=== PATIENT | male | born 2000 | race Two or more races ===

== ENCOUNTER 2023-09-10 18:06 | Inpatient (IN) | payer OTHER ==
[~2023-09-10] VITALS: Ht 200.7 cm; Wt 120.0 kg
[2023-09-10] MEDS ORDERED: KETOROLAC TROMETH 60MG/2ML VIAL IM ONE (18:30)
[2023-09-10 18:33] LABS: Urine Bacteria None Seen /hpf (None Seen)
[2023-09-10 18:36] VITALS: PULSE 86; RESP 16; O2SAT 100
[2023-09-10 18:41] LABS: Urine Blood 2+ /uL (Negative); Urine Clarity Turbid (Clear); Urine Color Yellow (Yellow); Urine Mucus FEW (None Seen); Urine Protein, UAD TRACE (Negative); Urine Specific Gravity 1.034 (1.001-1.035); Urine Urobilinogen 2 mg/dL (Negative); Urine WBC 4 /hpf (0 - 3); Urine pH 5.5 (5.0-9.0)
[2023-09-10] MEDS: SODIUM CHLORIDE 0.9% 1,000 ML IV ONE ×2 (18:59→20:30)
[2023-09-10] MEDS: ONDANSETRON HCL 4 MG/2 ML VIAL IV ONE (18:59)
[2023-09-10] MEDS: KETOROLAC TROMETH 30 MG/ML 1ML VIAL IV ONE (18:59)
[2023-09-10] MEDS ORDERED: ONDANSETRON HCL 4 MG/2 ML VIAL IV PRN (20:30)
[2023-09-10] MEDS ORDERED: ACETAMINOPHEN 325 MG TAB PO PRN (20:30)
[2023-09-10] MEDS: HYDROmorphone HCL 2 MG/ML VL/or syr IV ONE (20:43)
[2023-09-10 21:09] LABS: Basophils # (auto) 0 10 ^3/uL (0-0.2); Basophils % (auto) 0.1 % (0.0-2.0); Eosinophils # (auto) 0 10 ^3/uL (0-0.8); Eosinophils % (auto) 0.1 % (0.0-7.0); Hematocrit 42.3 % (41.0-53.0); Hemoglobin 14.5 g/dL (13.5-17.5); Lymphocytes # (auto) 0.8 10 ^3/uL (0.4-5.4); Lymphocytes % (auto) 7.5 % (10.0-50.0); Mean Corpuscular Hemoglobin 29.4 pg (28.0-32.0); Mean Corpuscular Hgb Conc. 34.3 g/dL (32.0-36.0); Mean Corpuscular Volume 85.7 fL (80.0-100.0); Monocytes # (auto) 0.3 10 ^3/uL (0-1.3); Monocytes % (auto) 3.2 % (0.0-12.0); Neutrophils # (auto) 9.3 10 ^3/uL (1.6-8.6); Neutrophils % (auto) 89.1 % (37.0-80.0); Red Blood Cells 4.93 10^6/uL (4.5-5.90); Red Cell Distribution Width 13.3 % (11.8-14.3); White Blood Cell 10.4 10^3/uL (4.4-10.8)
[2023-09-10 21:25] LABS: Alanine Aminotransferase 22 U/L (7-40); Albumin 4.7 g/dL (3.2-4.8); Alkaline Phosphatase 68 U/L (46-116); Anion Gap 9 (5-15); Aspartate Aminotransferase 25 U/L (13-40); BUN/Creatinine Ratio 12.8 (10.0-20.0); Blood Urea Nitrogen 14 mg/dL (9-23); Calcium 9.9 mg/dL (8.7-10.4); Carbon Dioxide 22 mmol/L (20-30); Chloride 107 mmol/L (98-107); Glucose 86 mg/dL (74-106); Potassium 3.6 mmol/L (3.5-5.1); Sodium 138 mmol/L (136-145)
[2023-09-10 21:26] LABS: Bilirubin, Total 1.2 mg/dL (0.2-1.0); Total Protein 6.8 g/dL (5.7-8.2)
[2023-09-10 21:31] LABS: INR 1.15 (0.9-1.15); Prothrombin Time 12.1 sec (9.3-11.8)
[2023-09-10] MEDS: SODIUM CHLOR 0.9% PF (SALINE LOCK) 10ML VIAL/SYR IV SCH (22:23)
[2023-09-11] MEDS: MORPHINE SULFATE INJ 2 MG/ml SYRG IV PRN (00:05)
[2023-09-11 00:15] VITALS: PULSE 86; RESP 18; O2SAT 94
[2023-09-11] MEDS: LACTATED RINGER'S 1,000 ML IV ONE (00:41)
[2023-09-11 01:00] VITALS: BP 128/88; PULSE 86; RESP 20; TEMP 97.6; O2SAT 94
[2023-09-11 01:04] VITALS: BP 128/88; PULSE 86; RESP 18; TEMP 97.6; O2SAT 94
[2023-09-11] MEDS: HYDROcodone-ACET 5/325MG TAB PO PRN (01:35)
[2023-09-11 05:00] VITALS: BP 129/74; PULSE 76; RESP 22; TEMP 97.5; O2SAT 97
[2023-09-11 08:00] VITALS: BP 141/81; PULSE 120; RESP 17; TEMP 97.5; O2SAT 100
[2023-09-11] MEDS: PANTOPRAZOLE 40 MG/10 ML VIAL INJ IV SCH (09:09)
[2023-09-11] MEDS: MANNITOL FTV 25% 12.5 GM/50 ML 50 ML IV ONE (10:53)
[2023-09-11 12:10] VITALS: BP 127/72; PULSE 67; RESP 16; TEMP 97.3; O2SAT 97
[2023-09-11] MEDS ORDERED: TAMSULOSIN HYDROCHLORIDE 0.4 MG CAP PO SCH (18:00)
== END 2023-09-11 12:29 | disposition home or self-care (01) | DRG 694 ==
LOC: ER 18:06 → OVERFLOW 20:27 → CENTRAL 23:44
PROVIDERS: ADMIT Internal Medicine; ATTEND Internal Medicine
DX: N13.2 Hydronephrosis with renal and ureteral calculous obstruction (principal); Z87.442 Personal history of urinary calculi
CPT/HCPCS: 36415; 74176; 80053; 81001; 85025; 85610; G0378; J1885; J2405; J2470